=== PATIENT | male | born 1965 | race Caucasian/White ===

== ENCOUNTER 2020-04-19 06:29 | Day surgery (SDC) | payer MEDICARE, OTHER ==
[2020-04-17 11:09] VITALS: BMI 26.1
[~2020-04-19 06:29] MED LIST: LACTATED RINGERS 1,000 ML IV SCH; LIDOCAINE 1% (10MG/ML) FOR IV START INTRADERMA PRN
[2020-04-19] MEDS ORDERED: PROPOFOL 10 MG/ML 20 ML VIAL IV ONE (07:34)
--- NOTE | 2020-04-19 07:38 | P.GSHP ---
History of Present Illness H&P Date: 04/19/20 CHIEF COMPLAINT: Colon screen HISTORY OF PRESENT ILLNESS: The patient is a 55-year-old male who presents for colon screen. Lower endoscopy was offered for further evaluation and management. PAST MEDICAL HISTORY: Please see list. PAST SURGICAL HISTORY: Please see list. MEDICATIONS: Please see list. ALLERGIES: Please see list. SOCIAL HISTORY: No illicit drug use FAMILY HISTORY: No reports of Crohn disease or ulcerative colitis. REVIEW OF ORGAN SYSTEMS: CONSTITUTIONAL: No reports of fevers or chills. PHYSICAL EXAM: VITAL SIGNS: Stable GENERAL: Well-developed pleasant in no acute distress. HEENT: No scleral icterus. Extraocular movements grossly intact. Moist buccal mucosa. NECK: Supple without lymphadenopathy. CHEST: Unlabored respirations. Equal bilateral excursions. CARDIOVASCULAR: Regular rate and rhythm. Distal 2+ pulses. ABDOMEN: Soft, nontender, nondistended. MUSCULOSKELETAL: No clubbing, cyanosis, or edema. ASSESSMENT: 1. Colon screen. PLAN: 1. Recommend proceeding with a lower endoscopy Past Medical History Additional Past Medical History / Comment(s): hx hypotension, past hx thrombocytopenia, urinary incontinence, History of Any Multi-Drug Resistant Organisms: None Reported Past Surgical History: Orthopedic Surgery Additional Past Surgical History / Comment(s): surgery for fx hip 2016- not sure which hip and no other surgical info at [facility]- Past Anesthesia/Blood Transfusion Reactions: No Reported Reaction, Unable to Obtain Additional Past Anesthesia/Blood Transfusion Reaction / Comment(s): no family hx at assisted living home Smoking Status: Never smoker - Past Family History Father Family Medical History: Cancer, Hypertension Additional Family Medical History / Comment(s): throat and stomach cancer Mother Family Medical History: Diabetes Mellitus, Hypertension Additional Family Medical History / Comment(s): obestiy,depression, lung porblems was a smoker Brother(s) Family Medical History: Cancer Medications and Allergies Home Medications Medication Instructions Recorded Confirmed Type Benztropine Mesylate [Cogentin] 0.5 mg PO BID 11/09/15 04/19/20 History Desmopressin [Ddavp] 0.2 mg PO HS 11/09/15 04/19/20 History Divalproex [Depakote] 500 mg PO BID 11/09/15 04/19/20 History Oxybutynin Chloride [Ditropan XL] 15 mg PO HS 11/09/15 04/19/20 History risperiDONE 4 mg PO 0700 11/09/15 04/19/20 History Acetaminophen Tab [Tylenol Tab] 650 mg PO 0700,1500 04/17/20 04/19/20 History Diclofenac Sodium 50 mg PO BID 04/17/20 04/19/20 History Fenofibrate Nanocrystallized 145 mg PO QAM 04/17/20 04/19/20 History [Fenofibrate] Hydrocodone/Acetaminophen [[place] 1 tab PO TID PRN 04/17/20 04/19/20 History 5-325] Loratadine [Claritin] 10 mg PO DAILY 04/17/20 04/19/20 History Prevalite 4 gm PO 1500 04/17/20 04/19/20 History QUEtiapine [SEROquel] 50 mg PO 0700,1500 04/17/20 04/19/20 History QUEtiapine [SEROquel] 200 mg PO 199904/17/20 04/19/20 History Sertraline [Zoloft] 100 mg PO DAILY 04/17/20 04/19/20 History Allergies Allergy/AdvReac Type Severity Reaction Status Date / Time No Known Allergies Allergy Verified 04/19/20 06:57 Surgical - Exam Vital Signs Temp Pulse Resp BP Pulse Ox 97.4 F L 88 16 125/85 96 04/19/20 07:01 04/19/20 07:01 04/19/20 07:01 04/19/20 07:01 04/19/20 07:01
--- NOTE | 2020-04-19 07:58 | P.PCN ---
Date of Procedure: 04/19/20 Description of Procedure: PREOPERATIVE DIAGNOSIS: Colonoscopy screening, first POSTOPERATIVE DIAGNOSIS: Colonoscopy screening, first Poor prep OPERATION: Colonoscopy to the cecum, ileocecal valve and appendiceal orifice. SURGEON: Sarah Sheriff MD. ANESTHESIA: MAC. INDICATIONS: The patient is a 55-year-old male who presents for his first colonoscopy screening. Benefits and risks were described and informed consent was obtained. DESCRIPTION OF PROCEDURE: The patient had undergone Gatorade, MiraLAX and Dulcolax prep. He had been brought into the operating room and laid in the left lateral decubitus position. After adequate intravenous sedation, the rectum was examined with 2% lidocaine jelly. No external hemorrhoids were encountered. The rectal tone was within normal limits. No lesions were palpated in the rectal vault. An Olympus colonoscope was advanced until the cecum, ileocecal valve and appendiceal orifice were clearly viewed. The prep was poor with moderate liquid stools including semisolid stool in the rectum limiting full view mucosa. No scattered diverticulosis was encountered. No large colonic polyps were found. Small polyps cannot be excluded. No evidence of focal colitis was found. Retroflexion of the scope demonstrated grade 1 internal hemorrhoids without active bleeding or inflammation. The colon was desufflated. The patient had tolerated the procedure well. Withdrawal time was over 6 minutes. FINDINGS: A[place]chick preparation quality scale 3+ (1-5) Internal hemorrhoids, grade 1 No external prolapsed hemorrhoids. No arteriovenous malformations. No large adenomatous polyps; smaller polyps cannot be excluded due to poor prep No focal colitis. RECOMMENDATIONS: Lower endoscopy in 2 years, 2021 with two to three-day colonoscopy prep Plan - Discharge Summary Discharge Rx Participant: No New Discharge Prescriptions: Continue Benztropine Mesylate [Cogentin] 0.5 mg PO BID Desmopressin [Ddavp] 0.2 mg PO HS Divalproex [Depakote] 500 mg PO BID Oxybutynin Chloride [Ditropan XL] 15 mg PO HS risperiDONE 4 mg PO 0700 Hydrocodone/Acetaminophen [[place] 5-325] 1 tab PO TID PRN PRN Reason: Pain Loratadine [Claritin] 10 mg PO DAILY Fenofibrate Nanocrystallized [Fenofibrate] 145 mg PO QAM Sertraline [Zoloft] 100 mg PO DAILY QUEtiapine [SEROquel] 50 mg PO 0700,1500 QUEtiapine [SEROquel] 200 mg PO 1999 Diclofenac Sodium 50 mg PO BID Prevalite 4 gm PO 1500 Acetaminophen Tab [Tylenol] 650 mg PO 0700,1500 Discharge Medication List Benztropine Mesylate [Cogentin] 0.5 mg PO BID 11/09/15 [History] Desmopressin [Ddavp] 0.2 mg PO HS 11/09/15 [History] Divalproex [Depakote] 500 mg PO BID 11/09/15 [History] Oxybutynin Chloride [Ditropan XL] 15 mg PO HS 11/09/15 [History] risperiDONE 4 mg PO 0700 11/09/15 [History] Acetaminophen Tab [Tylenol] 650 mg PO 0700,1500 04/17/20 [History] Diclofenac Sodium 50 mg PO BID 04/17/20 [History] Fenofibrate Nanocrystallized [Fenofibrate] 145 mg PO QAM 04/17/20 [History] Hydrocodone/Acetaminophen [[place] 5-325] 1 tab PO TID PRN 04/17/20 [History] Loratadine [Claritin] 10 mg PO DAILY 04/17/20 [History] Prevalite 4 gm PO 1500 04/17/20 [History] QUEtiapine [SEROquel] 50 mg PO 0700,1500 04/17/20 [History] QUEtiapine [SEROquel] 200 mg PO 199904/17/20 [History] Sertraline [Zoloft] 100 mg PO DAILY 04/17/20 [History] Follow up Appointment(s)/Referral(s): Sarah Sheriff MD [STAFF PHYSICIAN] - As Needed Patient Instructions/Handouts: *Surgery [facility] - (Anesthesia) Endoscopy Discharge Instructions Activity/Diet/Wound Care/Special Instructions: Poor prep. We'll need 2 day colonoscopy prep in 2 years, 2021 Discharge Disposition: HOME SELF-CARE
[2020-04-19 08:41] VITALS: BP 141/87; PULSE 77; RESP 16; TEMP 97.4
== END 2020-04-19 08:58 | disposition home or self-care (01) ==
LOC: ORWHC2ENDO 06:29
PROVIDERS: ATTEND Surgery Plastic and Reconstructive Surgery
DX: Z12.11 Encounter for screening for malignant neoplasm of colon (principal); K64.0 First degree hemorrhoids; R32 Unspecified urinary incontinence; Z86.2 Personal history of diseases of the blood and blood-forming organs and certain disorders involving the immune mechanism; E78.5 Hyperlipidemia, unspecified; F32.9 Major depressive disorder, single episode, unspecified; Z98.890 Other specified postprocedural states; Z82.49 Family history of ischemic heart disease and other diseases of the circulatory system; Z83.3 Family history of diabetes mellitus; Z80.0 Family history of malignant neoplasm of digestive organs; Z81.8 Family history of other mental and behavioral disorders; Z83.6 Family history of other diseases of the respiratory system; Z84.89 Family history of other specified conditions; Z80.9 Family history of malignant neoplasm, unspecified; Z79.899 Other long term (current) drug therapy
CPT/HCPCS: J2704; G0121